=== PATIENT | female | born 1970 | race Caucasian/White ===

== ENCOUNTER 2024-09-25 07:57 | Outpatient (CLI) | payer OTHER, SELFPAY ==
--- NOTE | ~2024-09-25 | MM_ITS ---
EXAMINATION: MM screening denilson BI w layo HISTORY: Screening TECHNIQUE: Craniocaudal and mediolateral oblique 3-D tomosynthesis images were obtained and synthetic 2-D images were generated. CAD analysis was submitted and interpreted. COMPARISON: No prior mammogram is available for comparison at this institution. BREAST PARENCHYMAL COMPOSITION: Not dense: There are scattered areas of fibroglandular density. FINDINGS: There are bilateral asymmetries in the upper outer quadrant of the breasts as well as media l aspect of the left breast on CC view. There are no suspicious calcifications or architectural disto rtion. IMPRESSION: 1. Bilateral breast asymmetries. 2. Additional mammographic views and possible breast ultrasound are recommended. BI-RADS CATEGORY 0 - INCOMPLETE STUDY, NEED ADDITIONAL IMAGING EVALUATION. Reviewed, dictated and finalized at location A. PROGRAMMER ANALYST IMPRESSION: 1. Bilateral breast asymmetries. 2. Additional mammographic views and possible breast ultrasound are recommended . BI-RADS CATEGORY 0 - INCOMPLETE STUDY, NEED ADDITIONAL IMAGING EVALUATION.
--- OUTSIDE RECORDS SUMMARY | 2024-09-26 21:31 | XMS_ITS | Clinical Summary ---
Author Organization [facility] Address [address] [place]: Epic Prelude ADT [place] [address] Care Team Providers Care Hot Tar Roofer Helper Name Role Phone Zoe Cho MD, Kana Ford Primary Care Provider [phone] Allergies No known active allergies Medications cyanocobalamin 1,000 mcg Tablet Take 2 Tablets (2,000 mcg) by mouth daily. 180 Tablet 3 1 Active cholecalciferol , Vitamin D3, 50 mcg (2,000 unit) Tablet Take 1 Tablet (2,000 Units) by mouth daily. 90 Tablet 3 1 Active estradioL (ESTRACE) 0.01% (0.1 mg/g) vaginal creamIndication s:Dyspareunia in female Apply 1g vaginally every night for 2 weeks, every other night for 2 weeks, then twice per week. 42.5 Gram 1 3 Active conjugated estrogens-medro xyPROGESTERone (Prempro) 0.3-1.5 mg TabletIndicatio ns:Menopausal symptoms Take 1 Tablet by mouth daily. 84 Tablet 11 10/13/2023 11:28 AM SHOP TECHNICIAN 3 Active Active Problems Problem Noted Date Diagnosed Date Attention deficit disorder of adult 03/02/2018 Resolved Problems Problem Noted Date Diagnosed Date Resolved Date Obesity (BMI 30.0-34.9) 12/01/201602/03 Encounters Date Type Department Care Team Description 09/25/2024 External Device Data [facility] ABSTRACTION Provider, Abstract 09/24/2024 External Device Data [facility] ABSTRACTION Provider, Abstract 09/10/2024 External Device Data [facility] ABSTRACTION Provider, Abstract 07/03/2024 External Device Data [facility] ABSTRACTION Provider, Abstract from Last 3 Months Immunizations Immunization Administration Dates Next Due (ADACEL/BOOSTRIX)(10 YR UP) TDAP VACCINE, 0.5ML, IM 01/18/2017 (EHSAN) COVID-19 VACCINE - EMERGENCY USE AUTHORIZATION, AD26,COV2S(PF) 0.5 ML IM SUSP 05/03/2021 Influenza Seasonal Unspecifi ed Formulation IM 06/16/2023,06/30/2022,06/29/2021,2019,07/03/2020,06/18/2019,06/14/2018,1 Family History Medical History Relation Name Comments Healthy Brother 1 Healthy Brother 2 Diabetes Father Daniel Heart Disease Father Daniel as of 01-17-2022 CHF Hypertension Father Daniel Healthy Granddaughter Healthy Grandson 1 Healthy Grandson 2 Breast Cancer Maternal Aunt great Brain Cancer Maternal Grandfather Noé Montgomery Cancer Maternal Grandfather Noé Montgomery 1974 brain cancer Breast Cancer Maternal Grandmother Ramiro Montgomery ? Cancer Maternal Grandmother Ramiro Montgomery di ed 1995 stomach cancer Ovarian Cancer Maternal Grandmother Ramiro Montgomery Endometriosis Mother Vika Hypertension Mother Vika Liver Disease Mother Vika Breast Cancer Paternal Cousin Healthy Paternal Grandfather Dementia Paternal Grandmother Moon Heart Disease Paternal Grandmother Moon Osteoporosis Paternal Grandmother Moon Healthy Sister 1 Healthy Sister 2 Healthy Son 1 Healthy Son 2 Healthy Son 3 Relation Name Status Comments Brother 1 Alive Brother 2 Alive Father Daniel Alive Granddaughter Grandson 1 Grandson 2 Maternal Aunt great Maternal Grandfather Noé Montgomery Maternal Grandmother Ramiro Montgomery Mother Vika Alive Paternal Cousin Alive Paternal Grandfather Alive Paternal Grandmother Moon Alive Sister 1 Alive Sister 2 Alive Son 1 Alive Son 2 Alive Son 3 Alive Social History Tobacco Use Types Packs/Day Years Used Date Smoking Tobacco: Never Smokeless Tobacco: Never Tobacco Cessation:Counseling Given: Not Answered Alcohol Use Standard Drinks/Week Comments No 0 (1 standard drink = 0.6 oz pur e alcohol) Comments No Sex and Gender Information Value Date Recorded Sex Assigned at Female 03/16/2024 4:09 PM CDT Legal Sex Female 1:15 AM SHOP TECHNICIAN Gender Identity Female 03/16/2024 4:09 PM CDT Sexual Orientation Straight 03/16/2024 4: 09 PM CDT Last Filed Vital Signs Vital Sign Reading Time Taken Comments Blood Pressure 128/82 04/06/2023 9:05 AM CDT Pulse 73 04/06/2023 9:05 AM CDT Temperature 36.6 ??C (97.8 ??F) 04/06/2023 9:05 AM CD T Respiratory Rate 18 04/06/2023 9:05 AM CDT Oxygen Saturation 99% 04/06/2023 9:05 AM CDT Inhaled Oxygen Concentration - - Weight 66.2 kg (146 lb) 04/06/2023 9:05 AM CDT Height 157.5 cm (5' 2 ) 04/06/2023 9:05 AM CDT Body Mass Index 26.7 04/06/2023 9:05 AM CDT Plan of Treatment Health Maintenance Due Date Last Done Comments HEPATITIS B VACCINES (1 of 3 - 19+ 3-dose series) 1988 COLORECTAL SCREENING 2014 Colorectal Cancer Screening 2014 FIT-DNA Q 3 years 2014 FIT/FOBT Q 1 year 2014 Flex Sig/CT Colonography Q 5 years 2014 ZOSTER VACCINE (1 of 2) 2019 BREAST CANCER SCREENING 06/15/2023 06/15/20 22, 04/26/2022, 10/27/2020 INFLUENZA VACCINE (#1) 2024 , 06/30/2022, 06/29/2021, Additional history exists COVID-19 Vaccine (2 - season) 2024 05/03/2021 Preventative Visit- Commercial 09/04/2024 04/06/2023 CERVICAL CANCER SCREENING 04/20/2025 04/20/2022 DTAP/TDAP/TD VACCINES (2 - Td or Tdap) 01/18/2027 01/18/2017 PNEUMOCOCCAL VACCINE 0-64 YEARS Aged Out No longer eligible based on patient's age to complete this topic Procedures Procedure Name Priority Date/Time Associated Diagnosis Comments MAMMO DIAG UNI LEFT 3D CARLOS W OR WO CAD Routine 06/15/2022 10:32 AM CDT Inconclusive mammogram CERV/VAG CYTO AGE BASED SCREEN PAP Routine 04/20/2022 4:00 PM CDT Screening for cervical cancer from Last 3 Months or Most Recently Relevant to Health Maintenance Results * MAMMO DIAG UNI LEFT 3D CARLOS W OR WO CAD (06/15/2022 10:32 AM CDT) Anatomical Region Laterality Modality Breast Left Mammography 06/15/2022 9:42 AM CDT Impressions 06/16/2022 7:23 AM CDT : 1. Negative left diagnostic mammogram. ASSESSMENT: ACR BI-RADS Category 1 - Negative. Left RECOMMENDATION: ?? 1: Screening 3D/Tomosynthesis Bilateral in 1 Year Regular breast self examination is encouraged. The absence of a suspicious finding should not delay additional imaging assessment, biopsy or intervention for symptomatic relief of any clinically suspicious lesion. 10% of cancers are not identified by mammography. ??Adenosis and dense breasts may obscure an underlying neoplasm. Findings and verbal/written recommendations were conveyed to the patient after completion of the exam. [id number] ? Narrative 06/16/2022 7:23 AM CDT REASON FOR EXAM: ?? Left breast asymmetry EXAM: MAMMO DIAG UNI LEFT 3D CARLOS W OR WO CAD EXAM DATE AND TIME: 06/15/2022 9:25 AM FAMILY HISTORY: ??Jennifer lifetime breast cancer risk 7.78% COMPARISON October 27, 2020, April 26, 2022 TECHNIQUE: Left unilateral diagnostic digital mammography with CAD was performed. ? BREAST COMPOSITION: ??There are scattered fibroglandular densities. FINDINGS: ?? Diagnostic whole breast LLM and medial LSCC reveal complete effacement of the previously suspected left asymmetries. us Andrey Borrego Jr., DO MAMMO ORDERABLES Final Res ult * CERV/VAG CYTO AGE BASED SCREEN PAP (04/20/2022 4:00 PM CDT) COMMENT (PAP): [facility] Comment: This order for age-based cervical cancer and STI screening follows ACOG guidelines(PB 168, 140, YVQ569). See individual assays for performing site location. CLINICAL INFORMATION [facility] Comment:Routine exam LAST MENSTRUAL PERIOD [facility] Comment:INFORMATION NOT PROV IDED PREV PAP: [facility] Comment:INFORMATION NOT PROV IDED PREV BX: [facility] Comment:INFORMATION NOT PROV IDED SOURCE [facility] Comment:[facility] ADEQUACY: [facility] Comment: Satisfactory for evaluation. Endocervical/transformation zone component present. Age and/or menstrual status not provided PAP INTERP [facility] Comment:Negative for intraep ithelial lesion or malignancy. COMMENT (PAP TEST) Q uest [employer] [facility] Comment: This Pap test has been evaluated with computer assisted technology. SALES REPRESENTATIVE ADVERTISING: est [employer] [facility] Comment: YQ, CT(ASCP) CT screening location: [place] [address] [place] [address] EXPLANATORY NOTE [facility] Comment: EXPLANATORY NOTE: The Pap is a screening test for cervical cancer. It is not a diagnostic test and is subject to false negative and false positive results. It is most reliable when a satisfactory sample, regularly obtained, is submitted with relevant clinical findings and history, and when the Pap result is evaluated along with historic and current clinical information. HPV E6/E7 Not Detected Not Detected [employer] Comment: Methodology: Manager Video-Mediated Amplification This assay detects E6/E7 viral messenger RNA (mRNA) from 14 high-risk HPV types (16,18,31,33,35,39,45,51,52,56,58,59,66,68). Cervical sources are required for HPV testing. If a vaginal source from a patient who has had a total hysterectomy with removal of cervix was submitted, please contact the testing laboratory for alternative testing options. For additional information, please refer to http://education.[facility]/faq/ANC242j8 (This link if provided for information/ educational purposes only.) Test Performed at: [facility] [id number] ??[id number] Tomi Matthews D.O., MPH SL Genital SWAB OF ENDOCERVIX / Unknown 04/20/2022 4:00 PM CDT 04/21/2022 8:19 AM CDT Stefano Haywood MD PATHOLOGY/CYTOLOGY ORDERABL ES Final Result [facility] [phone] [facility] [address] [place] [address] from Last 3 Months or Most Recently Relevant to Health Maintenance Insurance * Guarantor: JYOTI ACEVEDO Account Type Relation to Patient Date of Phone Billing Address Personal/Family [address] [place] [address] RX [employer] Member Subscriber Plan / Payer (Ef fective for All Dates) Name:Jyoti Acevedo Relation to Subscriber:Self Name:Jyoti Acevedo Payer ID:Not on file Group ID:[id number] Type:RX Commercial Address: [place], [place] RX [facility] Care Teams Hot Tar Roofer Helper Relationship Specialty Start Date End Date Kana Enriquez Jr., MD [address] [place] [address] [address] [facility] [address] [phone] PCP - General Family Practice 04/06/23
--- OUTSIDE RECORDS SUMMARY | 2024-09-26 21:31 | XMS_ITS | Continuity of Care Document ---
Author Organization [facility] Address [address] [place] [address] [address] [place] [address] Phone Care Team Providers Care Director Of Bands Name Role Phone Doisy, Edward Unavailable Unavailable Advance Directives Directive Yes / No Effective Date File Name No Information Encounters Encounter Description Practice Location Reason(s) For Visit Diagnoses Date Provider Providers Copied on Encounter [facility], [address] [place] [address] [address], [place], [place], [id number], [place] tel:[phone] [facility] No Information [address] Do[address] Edward. [address] , [address], [place], [address], [place]. tel:[phone] Family History Family Member Type Diagnosis Age At Onset No Information Payers Payer name Insurance type Covered green party ID Authoriza tion(s) [place] Commercial [id number] Social History Type Description Quantity Date Captured Comments Sex Female Smoking Status No Information Chief Complaint And Reason For Visit No Information Reason For Referral Reason For Referral No Information History Of Present Illness Encounter Date Complaint History Of Prese nt Illness No Information Functional Status Date Functional Assessmen t No Information Instructions Date Instruction Additional Infor mation No Information Assessments Type Assessment Date No Information Patient Care Teams Name Effective Dates (start - stop) Status Members No Information
--- OUTSIDE RECORDS SUMMARY | 2024-09-26 21:31 | XMS_ITS | Encounter Summary ---
Author Organization [facility] Address [address] [place] [address] Care Team Providers Care Vessel Crew Member Name Role Phone Zoe Cho MD, Kana Ford Primary Care Provider [phone]- [phone] Encounter Details Date Type Department Care Team (Late st Contact Info) Description 09/24/2024 External Device Data [facility] ABSTRACTION Provider, Abstract NO ADDRESS ON FILE Social History Tobacco Use Types Packs/Day Years Used Date Smoking Tobacco: Never Smokeless Tobacco: Never Alcohol Use Standard Drinks/Week Comments No 0 (1 standard drink = 0.6 oz pur e alcohol) Comments No Sex and Gender Information Value Date Recorded Sex Assigned at Female 03/16/2024 4:09 PM CDT Legal Sex Female 1:15 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
== END 2024-09-25 07:58 | disposition home or self-care (01) ==
LOC: ANHIMG 08:00
PROVIDERS: Visit Provider Nurse Practitioner Obstetrics & Gynecology
DX: Z12.31 Encounter for screening mammogram for malignant neoplasm of breast (principal)
CPT/HCPCS: 77063; 77067